=== PATIENT | female | born 1950 | race Caucasian/White ===

== ENCOUNTER 2019-01-01 11:50 | Emergency (ER) | payer BC ==
--- NOTE | 2019-01-01 12:18 | PDOC ---
History of Present Illness <Roya Ramirez - Last Filed: 01/01/19 12:50> - General History Source: Patient Exam Limitations: No Limitations - History of Present Illness Initial Comments: 01/01/19 12:30 Irena Camejo is a 68yF w PMHx T2D presenting w SOB. SOB started last 3 days , associated bilateral chest tightness. Vomited 3x yesterday, 1x this morning. Chest pain 11/01. Took 81mg aspirin this weekend, unsure if took today. Ate toast , tea this morning. Father of [place] in 40s, mother had multiple angioplasties. Denies fever, headache, AB pain, urinary/bowel changes. <David Geiger - Last Filed: 01/01/19 13:05> - General Chief Complaint: Shortness of Breath Stated Complaint: SOB ON EXERTION Time Seen by Provider: 01/01/19 12:18 Past History <Roya Ramirez - Last Filed: 01/01/19 12:50> <David Geiger - Last Filed: 01/01/19 13:05> - Past Medical History Allergies/Adverse Reactions: Allergies Allergy/AdvReac Type Severity Reaction Status Date / Time No Known Allergies Allergy Verified 01/01/19 12:07 Home Medications: Ambulatory Orders Aspirin Coated [Ecotrin -] 81 mg PO DAILY PRN 01/01/19 Metformin HCl [Glucophage] 1,000 mg PO BID 01/01/19 Review of Systems - Review of Systems Constitutional: No: Chills, Fever, Malaise HEENTM: No: Eye Pain, Ear Pain, Nose Pain, Mouth Pain Respiratory: Yes: Shortness of Breath. No: Cough, Orthopnea Cardiac (ROS): Yes: Chest Pain. No: Edema, Lightheadedness, Palpitations ABD/GI: Yes: Nausea, Vomiting. No: Abdominal Distended, Constipated, Diarrhea : No: Burning, Dysuria, Discharge, Frequency, Flank Pain, Hematuria Musculoskeletal: No: Back Pain, Gout, Joint Pain, Joint Swelling, Muscle Pain Integumentary: No: Bruising, Dryness, Erythema, Flushing Neurological: No: Headache, Numbness, Seizure, Tingling, Tremors Psychiatric: No: Anxiety, Depression Endocrine: No: Excessive Sweating, Flushing, Intolerance to Cold, Intolerance to Heat Hematologic/Lymphatic: No: Anemia, Blood Clots, Easy Bleeding <David Geiger - Last Filed: 01/01/19 13:05> *Physical Exam - Vital Signs Last Vital Signs Temp Pulse Resp BP Pulse Ox 97.8 F 75 15 148/76 100 01/01/19 12:41 01/01/19 12:46 01/01/19 12:46 01/01/19 12:46 01/01/19 12:46 <JamesRoya - Last Filed: 01/01/19 12:50> - Physical Exam General Appearance: Yes: Nourished, Appropriately Dressed, Mild Distress HEENT: positive: EOMI, YARON, Normal Voice, Hearing Grossly Normal. negative: Pale Conjunctivae, Scleral Icterus (R), Scleral Icterus (L), Nasal Congestion, Rhinorrhea Respiratory/Chest: positive: Lungs Clear, Normal Breath Sounds. negative: Chest Tender, Respiratory Distress, Accessory Muscle Use, Crackles, Rales, Rhonchi, Stridor, Wheezing Cardiovascular: positive: Regular Rhythm, Regular Rate, S1, S2. negative: Edema , Murmur Extremity: positive: Normal Capillary Refill Integumentary: positive: Normal Color Neurologic: positive: co teacher II-XII NML intact, Fully Oriented, Alert, Normal Mood/ Affect, Normal Response. negative: Numbness, Confused, Disoriented <David Geiger - Last Filed: 01/01/19 13:05> Heart Score/ECG Review - History History: Moderately suspicious - Electrocardiogram EKG: Significant ST-depression - Age Age: >/= 65 - Risk Factors Risk Factors Heart Score: No Hx Hypercholesterolemia, No Hx Hypertension, Yes Hx Diabetes, Yes Positive family hx of cardiac disease, No Hx Obesity Based on the list above the patient has:: 1-2 risk factors <David Geiger - Last Filed: 01/01/19 13:05> ED Treatment Course - LABORATORY CBC & Chemistry Diagram: 01/01/19 12:20 01/01/19 12:20 - RADIOLOGY Radiology Studies Ordered: Category Date Time Status CXRPORT [CHEST X-RAY PORTABLE*] [RAD] Stat Radiology 01/01/19 12:29 Ordered - Medications Given in the ED: ED Medications Discontinued Medications Generic Name Dose Route Start Last Admin Trade Name Freq PRN Reason Stop Dose Admin Aspirin 325 mg 01/01/19 12:29 01/01/19 12:38 Asa - PO 01/01/19 12:30 325 mg ONCE ONE Administration Heparin Sodium (Porcine) 5,000 unit 01/01/19 12:30 01/01/19 12:38 Heparin - IVPUSH 01/01/19 12:31 5,000 unit ONCE ONE Administration <Roya Ramirez - Last Filed: 01/01/19 12:50> - LABORATORY CBC & Chemistry Diagram: 01/01/19 12:20 01/01/19 12:20 <David Geiger - Last Filed: 01/01/19 13:05> Medical Decision Making - Medical Decision Making 01/01/19 12:29 CBC CMP trop coags CXR EKG EKG shows inferior STEMI - ST elevation II III avF, reciprocal TWI avL given 324 aspirin, 5000 heparin WBC 15, trop 1.81 Irena Camejo is a 68yF w PMHx T2D presenting w SOB and chest tightness concerning for inferior STEMI shown on EKG, trop 1.81. Given 324 aspirin, 5000 heparin. 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 <David Geiger - Last Filed: 01/01/19 13:05> *DC/Admit/Observation/Transfer <Roya Ramirez - Last Filed: 01/01/19 12:50> - Discharge Dispostion Decision to Admit order: No - Transfer to Acute Care Facility Receiving Facility: [facility]. Accepting Physician:: Daja Cole <David Geiger - Last Filed: 01/01/19 13:05> Diagnosis at time of Disposition: ST elevation myocardial infarction (STEMI) of inferior wall - Discharge Dispostion Disposition: TRANSFER ACUTE CARE/OTHER HOSP Condition at time of disposition: Good - Referrals Referrals: Loretta Rao [Primary Care Provider] - - Patient Instructions - Post Discharge Activity
[2019-01-01 12:26] VITALS: TEMP 97.8; BMI 25.0
[2019-01-01] MEDS ORDERED: ASPIRIN 325 MG TABLET PO ONE (12:29)
[2019-01-01] MEDS ORDERED: HEPARIN NA (PORCINE) 5,000 UNITS/ML 1ML VIAL IVPUSH ONE (12:30)
[2019-01-01] MEDS ORDERED: ASPIRIN 325 MG TABLET ONE (12:30)
[2019-01-01] MEDS ORDERED: HEPARIN NA (PORCINE) 5,000 UNITS/ML 1ML VIAL ONE (12:30)
--- NOTE | 2019-01-01 12:34 | PDOC ---
Attending Attestation - Resident Resident Name: David Geiger - ED Attending Attestation I have performed the following: I have examined & evaluated the patient, The case was reviewed & discussed with the resident, I agree w/resident's findings & plan, Exceptions are as noted - HPI HPI: 01/01/19 12:30 68 yo F with h/o sarcoidosis (no current meds) , DM here wtih c/o chest pain, exertional sob, and nausea, intermittent vomiting x 2 - 3 days. does have current substernal pressure. no f/c no leg swelling. no h/o mi or strokes. does have strong family h/o mother with multiple angioplasties, and father [place] in 40's. no other complaints. - Physicial Exam PE: 01/01/19 12:31 awake alert lungs clear bilat heart RRR no mrg abd soft nt nd ext wwp no edema. no calf tenderness. skin warm and dry. 2 + dp/ pt pulses. nuero alert oriented x 3. - Medical Decision Making 01/01/19 12:32 68 yo F with h/o DM, family h/o CAD, sarcoid here with c/o chest pain. plan ekg labs aspiring. cxr pt EKG wtih st elevation II, III, AVF, reciprocal TWI AVL. given asas 325. heparin bolus. 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 01/01/19 12:53 d/w [facility], ambulance en route to hospital for transfer. Heart Score/ECG Review #1 General ECG Interpretation: Sinus Rhythm, Normal Rate, Normal Intervals Compared to previous ECG there are: Other (ST elevation II, III, AVF, TWI AVL)
[2019-01-01 12:45] VITALS: BP 148/76
[2019-01-01 12:46] LABS: BASO % 0.4 % (0-2.0); EOS % 0.4 % (0-4.5); HEMATOCRIT 43.8 % (32.4-45.2); HEMOGLOBIN 14.5 GM/dl (10.7-15.3); LYMPH % 14.4 % (8-40); MCH 29.5 pg (25.7-33.7); MCHC 33.2 g/dl (32.0-36.0); MEAN PLT VOLUME 9.6 fl (7.5-11.1); MONO % 4.8 % (3.8-10.2); PLATELET COUNT 444 K/MM3 (134-434); RBC 4.92 M/mm3 (3.60-5.2); RDW 13.9 % (11.6-15.6); WHITE BLOOD COUNT 15.9 K/mm3 (4.0-10.8)
[2019-01-01 12:49] LABS: INR 1.17 (0.82-1.09); PROTHROMBIN TIME (PATIENT) 13.1 SEC (10.2-13.0)
[2019-01-01 12:54] LABS: ALBUMIN 4.2 g/dl (3.4-5.0); BILIRUBIN,TOTAL 0.5 mg/dl (0.2-1); CALCIUM 9.4 mg/dl (8.5-10); CREATININE 0.7 mg/dl (0.55-1.3); POTASSIUM 3.7 mmol/L (3.5-5.1); TOT PROT 7.2 g/dl (6.4-8.2)
[2019-01-01 13:09] VITALS: PULSE 77
--- NOTE | 2019-01-02 11:20 | EKG ---
Test Reason : Blood Pressure : / mmHG Vent. Rate : 078 BPM Atrial Rate : 078 BPM P-R Int : 152 ms QRS Dur : 084 ms QT Int : 374 ms P-R-T Axes : 058 047 069 degrees QTc Int : 426 ms NORMAL SINUS RHYTHM POSSIBLE LEFT ATRIAL ENLARGEMENT ST ELEVATION CONSIDER INFERIOR INJURY OR ACUTE INFARCT ACUTE GA / STEMI Consider right ventricular involvement in acute inferior infarct ABNORMAL ECG NO PREVIOUS ECGS AVAILABLE Confirmed by Goldy Ramos MD ([id number]) on 01/02/2019 11:19:51 AM Referred By: Confirmed By:Goldy Ramos MD
== END 2019-01-01 13:09 | disposition short-term general hospital (02) ==
LOC: FER 11:50
PROC: 3E033GC Introduction of Other Therapeutic Substance into Peripheral Vein, Percutaneous Approach (ICD-10-PCS; principal; 2019-01-01)
DX: I21.4 Non-ST elevation (NSTEMI) myocardial infarction (principal)
CPT/HCPCS: 36415; 80053; 84484; 85025; 85610; 93005; 99285-25; J1644

== ENCOUNTER 2019-01-21 13:50 | Emergency (ER) | payer BC ==
[2019-01-21 14:08] VITALS: TEMP 97.8; BMI 26.6
--- NOTE | 2019-01-21 14:21 | PDOC ---
Documentation entered by Tiffanie Juárez SCRIBE, acting as scribe for Roya Ramirez MD. Roya Ramirez MD: This documentation has been prepared by the osbaldoibeFranck Lincy, SCRIBE, under my direction and personally reviewed by me in its entirety. I confirm that the documentation accurately reflects all work, treatment, procedures, and medical decision making performed by me. History of Present Illness - General Chief Complaint: Lightheaded Stated Complaint: LIGHTHEADED Time Seen by Provider: 01/21/19 13:58 History Source: Patient Exam Limitations: No Limitations - History of Present Illness Initial Comments: 01/21/19 14:21 The patient is a 68-year-old female with a past medical history significant for sarcoidosis, DM, CAD, recent STEMI s/p 2 stent placement at [facility] who presents to the emergency department with lightheadedness. The patient reports she was doing stuff outside when she had an acute onset of lightheadedness and fatigue like she was going to pass out. The patient states she called her PCP (Dr. Rao), who referred the patient to follow up at the ER for further evaluation. Denies vertigo, weakness, new chest pain, shortness of breath, fever, or chills. Denies leg swelling, dark/bloody stool, or urinary complaints. Allergies: NKDA Social history: Former smoker, social use of alcohol. No reported use of recreational drugs Surgical history: Stent placement at [facility]. PCP: Dr. Rao Manual Control Auger Press Operator: Dr. Keke Almendarez Past History - Past Medical History Allergies/Adverse Reactions: Allergies Allergy/AdvReac Type Severity Reaction Status Date / Time No Known Allergies Allergy Verified 01/21/19 13:52 Home Medications: Ambulatory Orders Aspirin Coated [Ecotrin -] 81 mg PO DAILY PRN 01/01/19 Metformin HCl [Glucophage] 1,000 mg PO BID 01/01/19 Atorvastatin Ca [Lipitor] 80 mg PO DAILY 01/21/19 Clopidogrel Bisulfate [Plavix] 75 mg PO DAILY 01/21/19 Lisinopril [Zestril] 2.5 mg PO DAILY 01/21/19 Metoprolol Succinate [Toprol Xl] 25 mg PO DAILY 01/21/19 Cardiac Disorders: Yes (CA) COPD: No Diabetes: Yes HTN: No Hypercholesterolemia: Yes Kidney Stones: Yes - Psycho Social/Smoking Cessation Hx Smoking History: Never smoked Have you smoked in the past 12 months: No If you are a former smoker, when did you quit?: 2011 Information on smoking cessation initiated: No Hx Alcohol Use: (once a week) Drug/Substance Use Hx: No Review of Systems - Review of Systems Able to Perform ROS?: Yes Comments:: 01/21/19 14:21 GENERAL/CONSTITUTIONAL: +fatigue. No fever or chills. No weakness. HEAD, EYES, EARS, NOSE AND THROAT: No change in vision. No ear pain or discharge. No sore throat. CARDIOVASCULAR: No new chest pain or shortness of breath. RESPIRATORY: No cough, wheezing, or hemoptysis. GASTROINTESTINAL: No nausea, vomiting, diarrhea or constipation. No dark/bloody stool. GENITOURINARY: No dysuria, frequency, or change in urination. MUSCULOSKELETAL: No joint or muscle swelling or pain. No neck or back pain. SKIN: No rash NEUROLOGIC: +lightheadedness No headache, vertigo, loss of consciousness, or change in strength/sensation. ENDOCRINE: No increased thirst. No abnormal weight change. HEMATOLOGIC/LYMPHATIC: No anemia, easy bleeding, or history of blood clots. ALLERGIC/IMMUNOLOGIC: No hives or skin allergy. *Physical Exam - Vital Signs Last Vital Signs Temp Pulse Resp BP Pulse Ox 97.8 F 86 18 120/64 99 01/21/19 13:50 01/21/19 13:50 01/21/19 13:50 01/21/19 13:50 01/21/19 13:50 - Physical Exam Comments: 01/21/19 14:09 awake alert lungs clear bilat heart rrr no mrg abd soft nt nd ext wwp. no edema. symmetric 2+ dp/ radial pulses bilat. skin warm and dry. Heart Score/ECG Review #1 General ECG Interpretation: Sinus Rhythm, Normal Rate (80), Normal Intervals, No acute ischemic changes Compared to previous ECG there are: Other (TWI III, AVF. no st elevation or depression.) ED Treatment Course - LABORATORY CBC & Chemistry Diagram: 01/21/19 14:40 01/21/19 14:40 Medical Decision Making - Medical Decision Making 01/21/19 14:20 68 yo F h/o CAD recent stented 2 weeks ago after STEMI here with c/o feeling lightheaded. was recently started on asa, plavix beta mohinder and cholesterol meds. denies melena, no cp no sob. differential anemia, recurrent CA, se meds, infection such as uti, plan cxr labs ua ekg. trop 01/21/19 15:[address] Rao. 01/21/19 16:[address] Almendarez (cards), waiting for a call back from Dr. Clemens. 01/21/19 16:38 focused ED TTE performed, noted grossly normal contractlity. no rv dilation. no pericardial effusion. cxr negative for effusion, no edema. labs unremarkabel. creatinine normal. hgb normal. ua pending. d/w dr rao will see her end of january. recommend she hold her lisinopril that was just started few days ago as bp on low side most recent bp 105/70. d/w dr Clemens, partner of dr Jalyn Almendarez, farmworker animal who states they can get her into the office tomorrow am. pt wanting to go home. repeat trop sent and pending. if negative. pt feels improved following fluids willdc home 24 hr followup. Discharge - Discharge Information Problems reviewed: Yes Clinical Impression/Diagnosis: Lightheaded Condition: Improved Disposition: HOME - Admission No - Follow up/Referral Referrals: Loretta Rao [Primary Care Provider] - - Patient Discharge Instructions Patient Printed Discharge Instructions: Dos and Don'ts for Prescription Medications, Combating Dizziness in Older Adults Additional Instructions: you should follow up with your farmworker animal dr Almendarez tomorrow. Contact am office to confirm let them know you were seen in the emergency room and told to followup in am. your labs are unremarkable today. your chest xray is normal. you may be experiencing lightheadedness from your blood pressure medications. you should hold your lisinopril until you followup with your doctor. return for any shortness of breath, dizziness, chest pain or any concerns. - Post Discharge Activity
[2019-01-21] MEDS ORDERED: SODIUM CHLORIDE 0.9% 1000 ML INFUS.BAG IV ONE (14:22)
[2019-01-21 14:51] LABS: BASO % 0.5 % (0-2.0); EOS % 2.7 % (0-4.5); HEMATOCRIT 37.8 % (32.4-45.2); HEMOGLOBIN 12.4 GM/dl (10.7-15.3); LYMPH % 26.2 % (8-40); MCH 29.4 pg (25.7-33.7); MCHC 32.9 g/dl (32.0-36.0); MEAN CELL VOLUME 89.4 fl (80-96); MEAN PLT VOLUME 9.5 fl (7.5-11.1); MONO % 7.9 % (3.8-10.2); NEUT % 62.7 % (42.8-82.8); PLATELET COUNT 401 K/MM3 (134-434); RBC 4.23 M/mm3 (3.60-5.2); RDW 13.4 % (11.6-15.6); WHITE BLOOD COUNT 9.8 K/mm3 (4.0-10.8)
[2019-01-21 14:59] LABS: ALBUMIN 3.6 g/dl (3.4-5.0); BILIRUBIN,TOTAL 0.6 mg/dl (0.2-1); CALCIUM 8.9 mg/dl (8.5-10); CREATININE 0.6 mg/dl (0.55-1.3); POTASSIUM 4.1 mmol/L (3.5-5.1); TOT PROT 6.6 g/dl (6.4-8.2)
[2019-01-21 18:17] VITALS: BP 105/59; PULSE 79
--- NOTE | 2019-01-22 13:22 | EKG ---
Test Reason : Blood Pressure : / mmHG Vent. Rate : 080 BPM Atrial Rate : 080 BPM P-R Int : 146 ms QRS Dur : 088 ms QT Int : 374 ms P-R-T Axes : 062 012 -13 degrees QTc Int : 431 ms NORMAL SINUS RHYTHM INFERIOR INFARCT , AGE UNDETERMINED ABNORMAL ECG WHEN COMPARED WITH ECG OF 01-JAN-2019 12:17, EVOLVED INFERIOR INFARCT IS NOW SEEN Confirmed by GEORGES RUELAS MD ([id number]) on 01/22/2019 1:21:54 PM Referred By: JIMI VALDEZ Confirmed By:GEORGES RUELAS MD
== END 2019-01-21 18:25 | disposition home or self-care (01) ==
LOC: FER 13:50
PROC: 3E0337Z Introduction of Electrolytic and Water Balance Substance into Peripheral Vein, Percutaneous Approach (ICD-10-PCS; principal; 2019-01-21)
DX: R42 Dizziness and giddiness (principal); D86.9 Sarcoidosis, unspecified; E11.9 Type 2 diabetes mellitus without complications; I25.10 Atherosclerotic heart disease of native coronary artery without angina pectoris; I25.2 Old myocardial infarction; Z95.5 Presence of coronary angioplasty implant and graft; Z87.891 Personal history of nicotine dependence; E78.00 Pure hypercholesterolemia, unspecified; N20.0 Calculus of kidney
CPT/HCPCS: 36415; 71046-TC-FY; 80053; 81003; 84484; 85025; 93005; 99285-25; J7030